=== PATIENT | female | born 1965 | race Caucasian/White ===

== ENCOUNTER 2018-10-04 12:33 | Emergency (ER) | payer MEDICAID ==
[~2018-10-04] VITALS: Ht 157.5 cm; Wt 75.0 kg
[~2018-10-04 12:33] MED LIST: NOCURR
[2018-10-04] MEDS ORDERED: TraMADol HCL 50 MG TABLET PO ONE (13:30)
[2018-10-04 13:51] LABS: APPEARANCE,URINE CLOUDY (CLEAR); GLUCOSE, URINE (UA) NEGATIVE (NEGATIVE); KETONES,URINE TRACE mg/dL (NEGATIVE); LEUKOCYTE ESTERASE ,URINE SMALL (NEGATIVE); NITRATE,URINE NEGATIVE (NEGATIVE); OCCULT BLOOD,URINE NEGATIVE (NEGATIVE); PH,URINE 6.5 (5.0-8.0); PROTEIN,URINE NEGATIVE (NEGATIVE)
[2018-10-04 13:58] LABS: BILIRUBIN,URINE PRELIM. POSITIVE (NEGATIVE)
[2018-10-04 14:03] LABS: BACTERIA,URINE Moderate /HPF (None Seen); RBC,URINE 0-2 /HPF (0-2); SQUAMOUS EPITHELIAL CELL,UR Moderate /LPF (None Seen)
[2018-10-04 14:04] LABS: CALCIUM OXALATE CRYSTALS,UR Moderate /LPF (None Seen); TRANSITIONAL EPI CELLS,URINE Few /LPF (None Seen)
[2018-10-04 16:10] VITALS: BP 116/65
== END 2018-10-04 16:10 | disposition home or self-care (01) ==
LOC: EMS 12:34
DX: S60.032A Contusion of left middle finger without damage to nail, initial encounter (principal); N39.0 Urinary tract infection, site not specified; M25.561 Pain in right knee; M25.562 Pain in left knee; Z87.891 Personal history of nicotine dependence; V09.9XXA Pedestrian injured in unspecified transport accident, initial encounter; Y93.89 Activity, other specified; Y92.89 Other specified places as the place of occurrence of the external cause; Y99.8 Other external cause status
CPT/HCPCS: 87086